=== PATIENT | female | born 1950 | race Caucasian/White ===

== ENCOUNTER 2020-11-06 07:57 | Day surgery (SDC) | payer MEDICARE, BC ==
[~2020-11-06 07:57] MED LIST: Bacitracin Oint 1 GM U/D Packet ONE; Bupivacaine 0.5% 50 ML MDV ONE; Lidocaine 1% with EPINEPHrine 1:100,000 50 ML MDV ONE
[2020-11-06] MEDS ORDERED: Sodium Chloride 0.9% 1,000 ML IV SCH (09:00)
[2020-11-06] MEDS ORDERED: ceFAZolin 2 GM in Premix Bag 1 BAG IV ONE (09:15)
[2020-11-06] MEDS ORDERED: Midazolam 1 MG/ML 2 ML SDV ONE (10:16)
[2020-11-06] MEDS ORDERED: fentaNYL 100 MCG/2 ML SDV ONE (10:16)
[2020-11-06] MEDS ORDERED: Propofol 200 MG/20 ML SDV ONE (10:16)
--- NOTE | 2020-11-06 13:40 | OR ---
DATE OF PROCEDURE: 11/06/2020 SURGEON: Hemal Marti MD PROCEDURE: Excision of left leg basal cell carcinoma, 5.2 cm x 2.1 cm x 1.1 cm, full- thickness. COMPLICATION: None. DRAWSTRING KNOTTER: None. ANESTHESIA: MAC. PREOPERATIVE DIAGNOSIS: Basal cell carcinoma. POSTOPERATIVE DIAGNOSIS: Basal cell carcinoma. RISKS: Risks, benefits, alternatives, and limitations including, but not limited to infection, bleeding, perforation, false positives and false negatives were explained to the patient who wished to proceed. PROCEDURE IN DETAIL: The patient was placed in supine position. An elliptical incision was made to the aforementioned size. This was carried with a 15 blade. Prior to excision, a single stitch was placed superiorly, double stitch was placed posteriorly. This was then excised and sent to pathology. The wound was closed with interrupted Vicryl and karely along with 3 2-0 nylon horizontal mattress sutures. The patient tolerated the procedure well. Hemal Marti MD /[id number]
== END 2020-11-06 12:39 | disposition home or self-care (01) ==
LOC: JP.SDS 07:57
PROVIDERS: ATTEND Surgery
DX: C44.719 Basal cell carcinoma of skin of left lower limb, including hip (principal)
CPT/HCPCS: 36415; 80048; 85027; 88305; J0690; J2250; J2704; J3010; J3490; J7030

== ENCOUNTER 2022-06-08 06:24 | Day surgery (SDC) | payer MEDICARE, BC ==
[2022-06-08] MEDS ORDERED: Propofol 200 MG/20 ML SDV ONE (06:54)
[2022-06-08] MEDS ORDERED: fentaNYL 100 MCG/2 ML SDV ONE (06:55)
[2022-06-08] MEDS ORDERED: Lactated Ringers 1,000 ML IV SCH (07:00)
== END 2022-06-08 09:33 | disposition home or self-care (01) ==
LOC: JP.SDS 06:24
PROVIDERS: ATTEND Family Medicine
DX: Z12.11 Encounter for screening for malignant neoplasm of colon (principal); K57.30 Diverticulosis of large intestine without perforation or abscess without bleeding
CPT/HCPCS: G0121; J2704; J3010; J7120